=== PATIENT | female | born 1965 | race African-American/Black ===

== ENCOUNTER → 2017-08-23 | Outpatient (CLI) | payer OTHER ==
--- NOTE | 2017-08-23 15:56 | RAD ---
DATE: 08/23/2017 EXAM: DIGITAL SCREEN BILAT W/CAD HISTORY: Screening Mammogram COMPARISON: Screening mammogram 04/06/2015 This study was interpreted with the benefit of Computerized Aided Detection (CAD). The breast parenchyma is heterogeneously dense, which could reduce sensitivity of mammography. Breast parenchyma level C. FINDINGS: Bilateral digital 2-D CC and MLO views. There is a stable asymmetry in the retroglandular right breast seen on the MLO view. There is stable scattered bilateral calcifications. No suspicious mass, calcification or architectural distortion. No significant change from prior examination. IMPRESSION: No mammographic evidence of malignancy. Recommend routine screening mammogram in 12 months. BI-RADS CATEGORY: 2 BENIGN FINDING(S) RECOMMENDED FOLLOW-UP: 12M 12 MONTH FOLLOW-UP PQRS compliance statement: Patient information was entered into a reminder system with a target due date for the next mammogram. Mammography is a sensitive method for finding small breast cancers, but it does not detect them all and is not a substitute for careful clinical examination. A negative mammogram does not negate a clinically suspicious finding and should not result in delay in biopsying a clinically suspicious abnormality. "Our facility is accredited by the [employer] Mammography Program."
== END | disposition home or self-care (01) ==
LOC: MAMMO 14:05
PROVIDERS: ATTEND Nurse Practitioner Family
DX: Z12.31 Encounter for screening mammogram for malignant neoplasm of breast (principal)
CPT/HCPCS: 77067

== ENCOUNTER → 2017-08-27 | Outpatient (CLI) | payer OTHER ==
--- NOTE | 2017-08-27 15:20 | RAD ---
CT chest without contrast 08/27/2017 Indication: Lung nodule. Heavy smoker. Cough and shortness of air. Comparison: None available. Technique: Multiple axial CT images of the chest were obtained without intravenous contrast. Findings: The thyroid gland is normal in appearance. There are no pathologically enlarged lymph nodes in the axillary regions. Anterior chest wall is normal in appearance. There is a precarinal lymph node measuring 8 mm by short axis. No pathologically enlarged mediastinal or hilar lymph nodes are visualized. The thoracic aorta is normal in course and caliber. Heart size is within normal limits. There is no pericardial effusion. There is mild centrilobular pulmonary emphysema dominantly involving the right upper lobe. There is a 4 mm calcified granuloma in the left lower lobe. There is a 2 mm solid noncalcified pulmonary nodule in the right upper lobe (series 2, image 17). There is no pulmonary vascular congestion. No pleural effusions are identified. There is no pneumothorax. No pulmonary infiltrates are visualized. Evaluation of the upper abdominal viscera is limited by lack of intravenous contrast. There is a small hiatal hernia. No suspicious osseous lesions are identified. Impression: 1. There is mild centrilobular pulmonary emphysema involving predominantly the right upper lobe. 2. There is a 2 mm solid noncalcified nodule in the right upper lobe. PQRS Compliance Statement: One or more of the following individualized dose reduction techniques were utilized for this examination: 1. Automated exposure control 2. Adjustment of the mA and/or kV according to patient size 3. Use of iterative reconstruction technique
== END | disposition home or self-care (01) ==
LOC: CT 14:21
PROVIDERS: ATTEND Nurse Practitioner Family
DX: J43.9 Emphysema, unspecified (principal); J84.10 Pulmonary fibrosis, unspecified; K44.9 Diaphragmatic hernia without obstruction or gangrene; F17.200 Nicotine dependence, unspecified, uncomplicated; R91.1 Solitary pulmonary nodule
CPT/HCPCS: 71250

== ENCOUNTER → 2017-11-15 | Outpatient (CLI) | payer OTHER ==
[~2017-11-15] MED LIST: ALBU8.5H8 INH; FLUT100D IH; OMEP20CA9 PO
[2017-11-15 13:51] LABS: BASO % 1 % (0-3); EOS # 0.2 x10^3/uL (0.0-0.7); EOS % 5 % (0-3); HEMATOCRIT 42.2 % (36.0-47.0); HEMOGLOBIN 14.1 g/dL (12.0-15.5); LYMPH # 2.2 x10^3/uL (1.0-4.8); LYMPH % 46 % (24-48); MEAN CORPUSCULAR HEMOGLOBIN 31 pg (25-35); MEAN CORPUSCULAR HGB CONC 34 g/dL (31-37); MEAN CORPUSCULAR VOLUME 91 fL (79-100); MONO # 0.6 x10^3/uL (0.0-1.1); MONO % 13 % (0-9); NEUT # 1.7 x10^3uL (1.8-7.7); NEUT % 36 % (31-73); PLATELET COUNT 279 x10^3/uL (140-400); RED BLOOD COUNT 4.64 x10^6/uL (3.50-5.40); RED CELL DISTRIBUTION WIDTH 13.5 % (11.5-14.5); WHITE BLOOD COUNT 4.7 x10^3/uL (4.0-11.0)
[2017-11-15 14:06] LABS: BACTERIA,URINE FEW /HPF (0-FEW); BILIRUBIN,URINE NEG (NEG); CLARITY,URINE HAZY; COLOR,URINE YELLOW; GLUCOSE,URINE NEG (NEG); NITRITE,URINE NEG (NEG); RBC,URINE 0 /HPF (0-2); SQUAMOUS EPITHELIAL CELL,UR MOD /LPF; UROBILINOGEN,URINE 0.2 mg/dL (0.2 mg/dL)
[2017-11-15 14:58] LABS: ALBUMIN 3.6 g/dL (3.4-5.0); CALCIUM 8.5 mg/dL (8.5-10.1); CREATININE 0.9 mg/dL (0.6-1.0); DIRECT BILIRUBIN 0.1 mg/dL (0.0-0.2); GFR 79.3; POTASSIUM 4.2 mmol/L (3.5-5.1); TOTAL BILIRUBIN 0.5 mg/dL (0.2-1.0); TOTAL PROTEIN 7.6 g/dL (6.4-8.2)
[2017-11-16 14:34] LABS: FREE T4 0.79 ng/dL (0.76-1.46); THYROID STIM HORMONE (TSH) 2.739 uIU/mL (0.358-3.740)
== END | disposition home or self-care (01) ==
LOC: LAB 12:58
PROVIDERS: ATTEND Nurse Practitioner Family
DX: Z01.419 Encounter for gynecological examination (general) (routine) without abnormal findings (principal)
CPT/HCPCS: 36415; 80048; 80061; 80076; 81001; 84439; 84443; 85025

== ENCOUNTER → 2019-07-09 | Outpatient (CLI) | payer OTHER ==
[~2019-07-09] MED LIST changes: +ALBU2.5V8 INH; -ALBU8.5H8 INH; +OMEP20CA16 PO; -OMEP20CA9 PO
--- NOTE | 2019-07-09 10:28 | RAD ---
EXAM: Chest, 2 views. HISTORY: COPD. Asthma. COMPARISON: 08/27/2017 FINDINGS: 2 views of chest are obtained. There is no infiltrate, pleural effusion or pneumothorax. The heart is normal in size. IMPRESSION: No acute pulmonary finding. Electronically signed by: Esther Henriquez MD (07/09/2019 10:25 AM) [facility]
== END | disposition home or self-care (01) ==
LOC: DXRAD 10:03
PROVIDERS: ATTEND Family Medicine
DX: J44.9 Chronic obstructive pulmonary disease, unspecified (principal)
CPT/HCPCS: 71046

== ENCOUNTER → 2019-09-04 | Outpatient (CLI) | payer OTHER ==
--- NOTE | 2019-09-04 15:14 | RAD ---
3 views lumbar spine without comparison for low back pain. FINDINGS: There is straightening of the normal lumbar lordosis. There is no fracture or acute osseous or alignment abnormality identified. Intervertebral disc spaces appear well-maintained at all levels. There is a large densely calcified uterine fibroid and several phleboliths are seen in the pelvis. IMPRESSION: 1. Straightening of the normal lumbar lordosis with no acute osseous or alignment abnormality. 2. Large calcified uterine fibroid. Electronically signed by: Otis Gupta MD (09/04/2019 3:11 PM) [id number]
== END ==
LOC: DXRAD 09:48
PROVIDERS: ATTEND Surgery
DX: M54.9 Dorsalgia, unspecified (principal); D25.9 Leiomyoma of uterus, unspecified; N85.8 Other specified noninflammatory disorders of uterus; I87.8 Other specified disorders of veins
CPT/HCPCS: 72100